=== PATIENT | female | born 1955 | race Caucasian/White ===

== ENCOUNTER 2021-05-30 17:49 | Inpatient (IN) | payer MEDICARE ==
[~2021-05-30] VITALS: Ht 162.6 cm; Wt 76.2 kg
[~2021-05-30 17:49] MED LIST: ALBU8.5H8 INH; ALPR0.5T7 PO; ASCO500T8 PO; BACL-19 PO; BUDE10.2 INH; BUTA1CAP30 PO; CARV6.2512 PO; FENT1PAT77 SC; FENT1PAT77 TD; FERR325T18 PO; FURO20TA3 PO; GUAI600T80 PO; LEVO500T47 PO; LISI5TAB7 PO; LORA2TAB99 PO; MORP30CA15 PO; MORP30SU PR; NYST1000 PO; OMEP40CA8 PO; PRED10TA PO; SIMV10TA18 PO; SPIR25TA5 PO; TIOT18CA INH; VENL150C6 PO; WARF5TAB2 PO; WARF7.5T PO
[2021-05-30] MEDS ORDERED: PLEASE ENTER HEIGHT AND WEIGHT MC SCH (18:00)
[2021-05-30] MEDS ORDERED: SODIUM CHLORIDE FLUSH 10ML SYR IVF ONE (18:00)
[2021-05-30] MEDS ORDERED: ONDANSETRON 2MG/ML, 2ML IVPush ONE (18:00)
[2021-05-30 18:15] LABS: BASOPHILS % (AUTO) 1 % (0-1); EOSINOPHILS % (AUTO) 0 % (1-7); LYMPHOCYTES % (AUTO) 5 % (22-44); MEAN CORPUSCULAR HEMOGLOBIN 26.6 pg (27.0-34.8); MEAN CORPUSCULAR HGB CONC 32.1 g/dL (32.4-35.8); MEAN PLATELET VOLUME 9.2 fL (7.4-10.4); MONOCYTES % (AUTO) 5 % (2-9); NEUTROPHILS % (AUTO) 89 % (42-75); PLATELET COUNT 264 x10^3/uL (130-400); RED BLOOD COUNT 4.04 x10^6/uL (3.82-5.3); RED CELL DISTRIBUTION WIDTH 15.9 % (9.6-15.2)
[2021-05-30] MEDS ORDERED: ONDANSETRON 2MG/ML, 2ML ONE ×2 (18:16→20:55)
[2021-05-30] MEDS ORDERED: MORPHINE SULFATE 4 MG/ML, 1ML ONE ×3 (18:16→20:55)
[2021-05-30] MEDS: MORPHINE SULFATE 4 MG/ML, 1ML IVPush PRN ×2 (18:17→19:22)
[2021-05-30 18:23] LABS: ALANINE AMINOTRANSFERASE 32 U/L (12-78); ALBUMIN 3.4 g/dL (3.4-5.0); ANION GAP 6 mmol/L (5-15); CALCIUM 8.8 mg/dL (8.5-10.1); CHLORIDE 108 mmol/L (98-107); CREATININE 0.83 mg/dL (0.55-1.02)
[2021-05-30 18:25] LABS: PARTIAL THROMBOPLASTIN TIME 44 Seconds (25-31)
[2021-05-30 18:26] LABS: ALKALINE PHOSPHATASE 69 U/L (45-117); BILIRUBIN,TOTAL 0.3 mg/dL (0.2-1.0); TOTAL PROTEIN 6.8 g/dL (6.4-8.2)
[2021-05-30 18:57] LABS: PROTHROMBIN TIME > 84.0 Seconds (9.6-11.5)
[2021-05-30 18:59] LABS: INTERNATIONAL NORMALIZED RATIO > 8.00 (0.93-1.1)
--- NOTE | 2021-05-30 19:03 | NUR ---
CRITICAL PT+INR REPORTED TO [facility]
[2021-05-30] MEDS ORDERED: PHYTONADIONE 10 MG/ML, 1ML ONE (19:09)
[2021-05-30] MEDS ORDERED: ENALAPRILAT 1.25 MG/ML, 1ML ONE ×2 (19:09→19:37)
[2021-05-30] MEDS ORDERED: PIPERACILLIN/TAZO 3.375 GM in DEXTROSE 5% 50 ML IVPB ONE (19:30)
[2021-05-30] MEDS ORDERED: ENALAPRILAT 1.25 MG/ML, 2ML IV ONE ×2 (19:30)
[2021-05-30] MEDS ORDERED: PHYTONADIONE 10 MG/ML, 1ML SQ ONE (19:30)
[2021-05-30] MEDS ORDERED: SODIUM CHLORIDE 0.9% 1,000ML IVBOLUS ONE (19:30)
[2021-05-30 19:44] VITALS: BP 181/114
[2021-05-30] MEDS ORDERED: LABETALOL 5MG/ML, 20ML IVPush PRN (20:00)
[2021-05-30 20:06] VITALS: BP 186/118
[2021-05-30] MEDS ORDERED: FAMOTIDINE 20 MG/2 ML ONE (20:10)
[2021-05-30] MEDS ORDERED: LABETALOL 5MG/ML, 20ML ONE (20:10)
[2021-05-30] MEDS: FAMOTIDINE 20 MG/2 ML IVPush SCH (20:11)
[2021-05-30] MEDS: PIPERACILLIN/TAZO 3.375 GM in DEXTROSE 5% 50 ML IV SCH (20:14)
[2021-05-30] MEDS: LACTATED RINGERS 1,000 ML IV SCH (20:21)
[2021-05-30] MEDS ORDERED: ATOR-2 PO (20:27)
[2021-05-30] MEDS ORDERED: MORPHINE SULFATE 4 MG/ML, 1ML IVPush ONE (20:30)
[2021-05-30 20:33] VITALS: BP 170/82
[2021-05-30 20:48] VITALS: BP 135/85
[2021-05-30] MEDS: ONDANSETRON 2MG/ML, 2ML IVPush PRN (20:57)
[2021-05-30] MEDS ORDERED: OMNIPAQUE 350 MG/ML, 100ML BOTTLE ONE (21:05)
--- NOTE | 2021-05-30 21:40 | NUR ---
PT RESTING IN BED, STATES SHE FEELS MUCH BETTER AT THIS TIME, VSS.
[2021-05-31] MEDS ORDERED: MORPHINE SULFATE 4 MG/ML, 1ML ONE ×3 (00:22→11:32)
[2021-05-31] MEDS: morphine SULFATE 10 MG/ML, 1ML IVPush PRN ×3 (00:24→11:33)
[2021-05-31] MEDS: PIPERACILLIN/TAZO 3.375 GM in DEXTROSE 5% 50 ML IV SCH ×4 (00:24→21:21)
[2021-05-31] MEDS: LACTATED RINGERS 1,000 ML IV SCH ×3 (00:25→21:22)
[2021-05-31 06:28] LABS: BASOPHILS % (AUTO) 0 % (0-1); EOSINOPHILS % (AUTO) 0 % (1-7); LYMPHOCYTES % (AUTO) 9 % (22-44); MEAN CORPUSCULAR HGB CONC 32.3 g/dL (32.4-35.8); MEAN PLATELET VOLUME 9.4 fL (7.4-10.4); MONOCYTES % (AUTO) 12 % (2-9); NEUTROPHILS % (AUTO) 79 % (42-75); PLATELET COUNT 244 x10^3/uL (130-400); RED BLOOD COUNT 3.57 x10^6/uL (3.82-5.3); RED CELL DISTRIBUTION WIDTH 15.9 % (9.6-15.2)
[2021-05-31 06:32] LABS: INTERNATIONAL NORMALIZED RATIO 3.79 (0.93-1.1); PROTHROMBIN TIME 38.1 Seconds (9.6-11.5)
[2021-05-31 06:35] LABS: ANION GAP 5 mmol/L (5-15); CALCIUM 7.9 mg/dL (8.5-10.1); CHLORIDE 109 mmol/L (98-107)
--- NOTE | 2021-05-31 08:56 | NUR ---
PATIENT RESTING QUIETLY. ORDERED BREAKFAST.
[2021-05-31] MEDS ORDERED: TEMPLATE NON-FORMULARY MED. (Budesonide/Formoterol Fumarate (Symbicort 160-4.5 Mcg Inhaler INH SCH (09:00)
[2021-05-31] MEDS ORDERED: TEMPLATE NON-FORMULARY MED. (Omeprazole** 40 MG) PO SCH (09:00)
[2021-05-31] MEDS ORDERED: FAMOTIDINE 20 MG/2 ML ONE (09:03)
[2021-05-31] MEDS: FAMOTIDINE 20 MG/2 ML IVPush SCH ×2 (09:08→21:21)
[2021-05-31] MEDS ORDERED: OMEPRAZOLE 20 MG CAPSULE.DR ONE (09:18)
--- NOTE | 2021-05-31 10:17 | NUR ---
PATIENT RESTING QUIETLY. PATIENT NPO
--- NOTE | 2021-05-31 11:30 | NUR ---
started 18 gauge right forearm as patients left iv starting to hurt her. let new nurse kaiden know. new iv great, runs well
[2021-05-31] MEDS ORDERED: POTASSIUM CHLORIDE 20 MEQ TAB.ER.PRT ONE (11:45)
[2021-05-31 12:31] VITALS: BP 157/85
[2021-05-31] MEDS ORDERED: BACLOFEN 10 MG TABLET PO PRN (13:00)
[2021-05-31] MEDS ORDERED: HYDROmorphone 2 MG/ML, 1ML ONE ×3 (14:52→22:22)
[2021-05-31] MEDS: HYDROmorphone 1 MG/ML, 1ML INJ IV PRN ×3 (15:05→22:30)
[2021-05-31] MEDS: ONDANSETRON 2MG/ML, 2ML IVPush PRN (17:15)
[2021-05-31] MEDS ORDERED: HOLD WARFARIN MC PRN (17:30)
[2021-05-31 19:17] VITALS: BP 149/82
[2021-05-31 22:29] VITALS: BP 161/73
[2021-05-31] MEDS: ALBUTEROL HFA 90 MCG/SPRAY INH PRN (23:26)
[2021-06-01 00:26] VITALS: BP 133/83
[2021-06-01] MEDS: PIPERACILLIN/TAZO 3.375 GM in DEXTROSE 5% 50 ML IV SCH ×4 (04:17→22:09)
[2021-06-01] MEDS ORDERED: HYDROmorphone 2 MG/ML, 1ML ONE ×2 (04:21→11:00)
[2021-06-01 04:31] VITALS: BP 153/98
[2021-06-01] MEDS: ALBUTEROL HFA 90 MCG/SPRAY INH PRN (04:31)
[2021-06-01] MEDS: ONDANSETRON 2MG/ML, 2ML IVPush PRN ×3 (04:31→20:11)
[2021-06-01] MEDS: HYDROmorphone 1 MG/ML, 1ML INJ IV PRN ×2 (04:32→11:04)
[2021-06-01] MEDS: LACTATED RINGERS 1,000 ML IV SCH ×2 (05:46→15:36)
[2021-06-01 06:48] LABS: INTERNATIONAL NORMALIZED RATIO 1.83 (0.93-1.1)
[2021-06-01 07:42] LABS: BASOPHILS % (AUTO) 1 % (0-1); EOSINOPHILS % (AUTO) 3 % (1-7); LYMPHOCYTES % (AUTO) 10 % (22-44); MEAN CORPUSCULAR HGB CONC 31.4 g/dL (32.4-35.8); MEAN PLATELET VOLUME 9.7 fL (7.4-10.4); MONOCYTES % (AUTO) 11 % (2-9); NEUTROPHILS % (AUTO) 76 % (42-75); PLATELET COUNT 182 x10^3/uL (130-400); RED BLOOD COUNT 3.38 x10^6/uL (3.82-5.3); RED CELL DISTRIBUTION WIDTH 16.4 % (9.6-15.2)
[2021-06-01 07:50] VITALS: BP 132/80
[2021-06-01] MEDS: OMEPRAZOLE 20 MG CAPSULE.DR PO SCH (09:12)
[2021-06-01] MEDS: FAMOTIDINE 20 MG/2 ML IVPush SCH (09:12)
[2021-06-01] MEDS: FLUTICASONE/VILANTEROL 200-25MCG/INH INH SCH (09:36)
[2021-06-01 13:21] VITALS: BP 144/87
[2021-06-01] MEDS: HYDROmorphone 2 MG/ML, 1ML IV PRN ×2 (15:56→20:10)
[2021-06-01] MEDS ORDERED: WARFARIN 10 MG TABLET PO-COUM ONE (18:00)
[2021-06-01] MEDS: FAMOTIDINE 20 MG TABLET PO SCH (20:13)
[2021-06-01 20:56] VITALS: BP 150/81
[2021-06-02 00:04] VITALS: BP_SYST 130; BP_SYST 155; BP_DIAS 101; BP_DIAS 87
[2021-06-02 00:05] VITALS: BP 130/87
[2021-06-02] MEDS: HYDROmorphone 2 MG/ML, 1ML IV PRN ×5 (00:08→21:39)
[2021-06-02] MEDS: LACTATED RINGERS 1,000 ML IV SCH ×2 (02:17→07:51)
[2021-06-02] MEDS: ALBUTEROL HFA 90 MCG/SPRAY INH PRN ×2 (02:35→07:57)
[2021-06-02] MEDS: PIPERACILLIN/TAZO 3.375 GM in DEXTROSE 5% 50 ML IV SCH ×4 (03:52→21:39)
[2021-06-02 05:39] LABS: BASOPHILS % (AUTO) 0 % (0-1); EOSINOPHILS % (AUTO) 2 % (1-7); LYMPHOCYTES % (AUTO) 8 % (22-44); MEAN CORPUSCULAR HEMOGLOBIN 26.4 pg (27.0-34.8); MEAN CORPUSCULAR HGB CONC 32.1 g/dL (32.4-35.8); MONOCYTES % (AUTO) 11 % (2-9); NEUTROPHILS % (AUTO) 80 % (42-75); PLATELET COUNT 209 x10^3/uL (130-400); RED BLOOD COUNT 2.99 x10^6/uL (3.82-5.3)
[2021-06-02 05:47] LABS: INTERNATIONAL NORMALIZED RATIO 1.44 (0.93-1.1); PROTHROMBIN TIME 15.1 Seconds (9.6-11.5)
[2021-06-02 05:49] LABS: CHLORIDE 104 mmol/L (98-107)
[2021-06-02 05:54] LABS: ANION GAP 6 mmol/L (5-15); CALCIUM 7.8 mg/dL (8.5-10.1); CREATININE 0.59 mg/dL (0.55-1.02)
[2021-06-02 07:19] VITALS: BP 149/85
[2021-06-02] MEDS ORDERED: POTASSIUM CHLORIDE 20 MEQ in SODIUM CHLORIDE 0.9% 250 ML IV ONE (07:30)
[2021-06-02] MEDS: POTASSIUM CHLORIDE 20 MEQ TAB.ER.PRT PO SCH ×2 (07:48→10:04)
[2021-06-02] MEDS: FAMOTIDINE 20 MG TABLET PO SCH ×2 (07:48→19:38)
[2021-06-02] MEDS: OMEPRAZOLE 20 MG CAPSULE.DR PO SCH (07:48)
[2021-06-02] MEDS: FLUTICASONE/VILANTEROL 200-25MCG/INH INH SCH (07:49)
[2021-06-02] MEDS: OXYBUTYNIN CHLORIDE 5 MG TABLET PO PRN ×2 (10:04→16:28)
[2021-06-02 13:51] VITALS: BP 151/78
[2021-06-02] MEDS ORDERED: OMNIPAQUE 350 MG/ML, 100ML BOTTLE ONE (14:02)
[2021-06-02] MEDS ORDERED: WARFARIN 5 MG TABLET PO-COUM ONE (18:00)
[2021-06-02 19:08] VITALS: BP 149/87
[2021-06-02] MEDS: ESCITALOPRAM 10MG TABLET PO SCH (19:22)
[2021-06-02] MEDS: ACETAMINOPHEN 325 MG TABLET PO PRN (19:38)
[2021-06-02 21:35] VITALS: BP 140/89
[2021-06-03 03:20] VITALS: BP 154/94
[2021-06-03] MEDS: ACETAMINOPHEN 325 MG TABLET PO PRN (03:27)
[2021-06-03] MEDS: PIPERACILLIN/TAZO 3.375 GM in DEXTROSE 5% 50 ML IV SCH ×3 (03:44→15:39)
[2021-06-03 05:00] LABS: INTERNATIONAL NORMALIZED RATIO 1.59 (0.93-1.1); PROTHROMBIN TIME 16.6 Seconds (9.6-11.5)
[2021-06-03 05:04] LABS: CHLORIDE 103 mmol/L (98-107)
[2021-06-03 05:13] LABS: % IRON SATURATION 5 % (20-55); ALANINE AMINOTRANSFERASE 30 U/L (12-78); ALBUMIN 2.8 g/dL (3.4-5.0); ALKALINE PHOSPHATASE 58 U/L (45-117); ANION GAP 7 mmol/L (5-15); BILIRUBIN,TOTAL 0.4 mg/dL (0.2-1.0); CREATININE 0.62 mg/dL (0.55-1.02); IRON LEVEL 16 mcg/dL (50-170); TOTAL IRON BINDING CAPACITY 305 mcg/dL (250-450); TOTAL PROTEIN 5.5 g/dL (6.4-8.2)
[2021-06-03 07:49] VITALS: BP 184/98
[2021-06-03 08:10] VITALS: BP 171/86
[2021-06-03] MEDS ORDERED: POTASSIUM CHLORIDE 20 MEQ TAB.ER.PRT PO ONE (08:30)
[2021-06-03] MEDS: HYDROmorphone 2 MG/ML, 1ML IV PRN ×3 (08:31→18:37)
[2021-06-03] MEDS: OXYBUTYNIN CHLORIDE 5 MG TABLET PO PRN ×2 (08:31→15:18)
[2021-06-03] MEDS: OMEPRAZOLE 20 MG CAPSULE.DR PO SCH (08:31)
[2021-06-03] MEDS: FAMOTIDINE 20 MG TABLET PO SCH ×2 (08:32→21:07)
[2021-06-03] MEDS: ALBUTEROL HFA 90 MCG/SPRAY INH PRN (08:32)
[2021-06-03] MEDS: FLUTICASONE/VILANTEROL 200-25MCG/INH INH SCH (08:32)
[2021-06-03 09:37] VITALS: BP 153/78
[2021-06-03] MEDS ORDERED: LIDOCAINE 1%, 10ML ONE (11:28)
[2021-06-03] MEDS ORDERED: MIDAZOLAM 1 MG/ML, 5ML ONE ×2 (11:29)
[2021-06-03] MEDS ORDERED: FLUMAZENIL 0.1 MG/1 ML, 5ML ONE (11:29)
[2021-06-03] MEDS ORDERED: NALOXONE 1 MG/ML, 2ML ONE (11:29)
[2021-06-03] MEDS ORDERED: FENTANYL PF 100 MCG/2ML ONE (11:29)
[2021-06-03 15:00] VITALS: BP 138/89
[2021-06-03] MEDS ORDERED: WARFARIN 7.5 MG TABLET PO-COUM ONE (18:00)
[2021-06-03] MEDS: MEROPENEM 1 GM in SODIUM CHLORIDE 0.9% 100 ML IV SCH (18:28)
[2021-06-03 20:20] VITALS: BP 159/76
[2021-06-03] MEDS: ESCITALOPRAM 10MG TABLET PO SCH (21:07)
[2021-06-03] MEDS ORDERED: HYDROmorphone 2 MG/ML, 1ML ONE (21:25)
[2021-06-03] MEDS ORDERED: HYDROmorphone 1 MG/ML, 1ML INJ IV ONE (21:30)
[2021-06-04 00:50] VITALS: BP 148/85
[2021-06-04] MEDS: HYDROmorphone 2 MG/ML, 1ML IV PRN ×6 (01:06→23:45)
[2021-06-04] MEDS: MEROPENEM 1 GM in SODIUM CHLORIDE 0.9% 100 ML IV SCH (02:21)
[2021-06-04 06:29] LABS: BASOPHILS % (AUTO) 0 % (0-1); EOSINOPHILS % (AUTO) 2 % (1-7); LYMPHOCYTES % (AUTO) 16 % (22-44); MEAN CORPUSCULAR HEMOGLOBIN 27.2 pg (27.0-34.8); MEAN CORPUSCULAR HGB CONC 32.5 g/dL (32.4-35.8); MEAN PLATELET VOLUME 8.7 fL (7.4-10.4); MONOCYTES % (AUTO) 13 % (2-9); NEUTROPHILS % (AUTO) 69 % (42-75); PLATELET COUNT 223 x10^3/uL (130-400); RED CELL DISTRIBUTION WIDTH 16.6 % (9.6-15.2)
[2021-06-04 06:31] LABS: INTERNATIONAL NORMALIZED RATIO 1.89 (0.93-1.1); PROTHROMBIN TIME 19.6 Seconds (9.6-11.5)
[2021-06-04 06:37] LABS: CHLORIDE 103 mmol/L (98-107)
[2021-06-04 06:48] LABS: ALANINE AMINOTRANSFERASE 29 U/L (12-78); ALBUMIN 2.8 g/dL (3.4-5.0); ALKALINE PHOSPHATASE 62 U/L (45-117); ANION GAP 6 mmol/L (5-15); BILIRUBIN,TOTAL 0.4 mg/dL (0.2-1.0); CALCIUM 8.3 mg/dL (8.5-10.1); CREATININE 0.59 mg/dL (0.55-1.02); TOTAL PROTEIN 5.9 g/dL (6.4-8.2)
[2021-06-04] MEDS: OMEPRAZOLE 20 MG CAPSULE.DR PO SCH (07:44)
[2021-06-04 07:45] VITALS: BP 156/96
[2021-06-04] MEDS: FAMOTIDINE 20 MG TABLET PO SCH ×2 (07:45→20:04)
[2021-06-04] MEDS: FLUTICASONE/VILANTEROL 200-25MCG/INH INH SCH (07:45)
[2021-06-04] MEDS: ACETAMINOPHEN 325 MG TABLET PO PRN (08:36)
[2021-06-04] MEDS: OXYBUTYNIN CHLORIDE 5 MG TABLET PO PRN (08:36)
[2021-06-04] MEDS ORDERED: OXYcodone/APAP 10/325MG TABLET PO PRN (09:30)
[2021-06-04] MEDS: AMPICILLIN/SULBACTAM 3 GM in SODIUM CHLORIDE 0.9% 100 ML IV SCH ×3 (09:40→20:55)
[2021-06-04] MEDS ORDERED: POTASSIUM CHLORIDE 20 MEQ TAB.ER.PRT PO ONE (11:00)
[2021-06-04 14:02] VITALS: BP 144/80
[2021-06-04] MEDS ORDERED: WARFARIN 5 MG TABLET PO-COUM ONE (17:11)
[2021-06-04] MEDS ORDERED: WARFARIN 2.5 MG TABLET PO-COUM ONE (17:11)
[2021-06-04] MEDS ORDERED: WARFARIN 7.5 MG TABLET PO-COUM ONE (18:00)
[2021-06-04] MEDS: ESCITALOPRAM 10MG TABLET PO SCH (20:04)
[2021-06-04 20:32] VITALS: BP 170/103
[2021-06-04] MEDS: ALBUTEROL HFA 90 MCG/SPRAY INH PRN (20:54)
[2021-06-04 21:08] VITALS: BP 175/70
[2021-06-05 00:22] VITALS: BP 162/78
[2021-06-05] MEDS: AMPICILLIN/SULBACTAM 3 GM in SODIUM CHLORIDE 0.9% 100 ML IV SCH ×4 (03:15→23:08)
[2021-06-05 05:50] VITALS: BP 178/94
[2021-06-05 06:13] VITALS: BP 163/78
[2021-06-05] MEDS: ALBUTEROL HFA 90 MCG/SPRAY INH PRN (06:14)
[2021-06-05 07:04] VITALS: BP 161/96
[2021-06-05 09:13] LABS: BASOPHILS % (AUTO) 1 % (0-1); EOSINOPHILS % (AUTO) 1 % (1-7); LYMPHOCYTES % (AUTO) 8 % (22-44); MEAN CORPUSCULAR HEMOGLOBIN 26.8 pg (27.0-34.8); MEAN CORPUSCULAR HGB CONC 32.6 g/dL (32.4-35.8); MEAN PLATELET VOLUME 8.7 fL (7.4-10.4); MONOCYTES % (AUTO) 11 % (2-9); NEUTROPHILS % (AUTO) 80 % (42-75); PLATELET COUNT 245 x10^3/uL (130-400); RED BLOOD COUNT 3.22 x10^6/uL (3.82-5.3); RED CELL DISTRIBUTION WIDTH 16.6 % (9.6-15.2)
[2021-06-05 09:16] LABS: INTERNATIONAL NORMALIZED RATIO 2.25 (0.93-1.1); PROTHROMBIN TIME 23.2 Seconds (9.6-11.5)
[2021-06-05 09:17] LABS: ANION GAP 7 mmol/L (5-15); CALCIUM 8.4 mg/dL (8.5-10.1); CHLORIDE 100 mmol/L (98-107); CREATININE 0.55 mg/dL (0.55-1.02)
[2021-06-05] MEDS: FAMOTIDINE 20 MG TABLET PO SCH ×2 (09:20→20:25)
[2021-06-05] MEDS: OMEPRAZOLE 20 MG CAPSULE.DR PO SCH (09:20)
[2021-06-05] MEDS: LISINOPRIL 20 MG TABLET PO SCH (09:20)
[2021-06-05] MEDS: HYDROmorphone 2 MG/ML, 1ML IVPush PRN ×4 (09:22→23:08)
[2021-06-05] MEDS: FLUTICASONE/VILANTEROL 200-25MCG/INH INH SCH (13:07)
[2021-06-05 14:40] VITALS: BP 154/83
[2021-06-05] MEDS ORDERED: WARFARIN 7.5 MG TABLET PO-COUM ONE (18:00)
[2021-06-05] MEDS ORDERED: WARFARIN 5 MG TABLET PO-COUM ONE (20:07)
[2021-06-05 20:20] VITALS: BP_SYST 154; BP_SYST 163; BP_DIAS 80; BP_DIAS 83
[2021-06-05] MEDS: ESCITALOPRAM 10MG TABLET PO SCH (20:25)
[2021-06-06 02:37] VITALS: BP 155/86
[2021-06-06 04:19] LABS: BASOPHILS % (AUTO) 1 % (0-1); EOSINOPHILS % (AUTO) 2 % (1-7); LYMPHOCYTES % (AUTO) 17 % (22-44); MEAN CORPUSCULAR HEMOGLOBIN 26.8 pg (27.0-34.8); MEAN CORPUSCULAR HGB CONC 32.9 g/dL (32.4-35.8); MEAN PLATELET VOLUME 8.6 fL (7.4-10.4); MONOCYTES % (AUTO) 15 % (2-9); NEUTROPHILS % (AUTO) 66 % (42-75); PLATELET COUNT 224 x10^3/uL (130-400); RED CELL DISTRIBUTION WIDTH 16.6 % (9.6-15.2)
[2021-06-06 04:20] LABS: ANION GAP 4 mmol/L (5-15); CALCIUM 8.5 mg/dL (8.5-10.1); CHLORIDE 101 mmol/L (98-107)
[2021-06-06 04:21] LABS: INTERNATIONAL NORMALIZED RATIO 2.53 (0.93-1.1); PROTHROMBIN TIME 25.9 Seconds (9.6-11.5)
[2021-06-06] MEDS: AMPICILLIN/SULBACTAM 3 GM in SODIUM CHLORIDE 0.9% 100 ML IV SCH ×4 (04:30→22:42)
[2021-06-06] MEDS: HYDROmorphone 2 MG/ML, 1ML IVPush PRN ×4 (04:45→21:40)
[2021-06-06 08:23] VITALS: BP 147/101
[2021-06-06] MEDS: FAMOTIDINE 20 MG TABLET PO SCH ×2 (08:24→20:04)
[2021-06-06] MEDS: LISINOPRIL 20 MG TABLET PO SCH (08:24)
[2021-06-06] MEDS: FLUTICASONE/VILANTEROL 200-25MCG/INH INH SCH (08:24)
[2021-06-06] MEDS: OMEPRAZOLE 20 MG CAPSULE.DR PO SCH (08:24)
[2021-06-06] MEDS ORDERED: POTASSIUM CHLORIDE 20 MEQ TAB.ER.PRT PO ONE (10:00)
[2021-06-06 14:04] VITALS: BP 169/93
[2021-06-06] MEDS ORDERED: WARFARIN 5 MG TABLET PO-COUM ONE (18:00)
[2021-06-06 19:40] VITALS: BP 159/101
[2021-06-06] MEDS: ESCITALOPRAM 10MG TABLET PO SCH (20:04)
[2021-06-06] MEDS: ALBUTEROL HFA 90 MCG/SPRAY INH PRN (20:37)
[2021-06-07 01:34] VITALS: BP 150/97
[2021-06-07] MEDS: AMPICILLIN/SULBACTAM 3 GM in SODIUM CHLORIDE 0.9% 100 ML IV SCH ×2 (04:37→10:29)
[2021-06-07 04:50] LABS: BASOPHILS % (AUTO) 2 % (0-1); EOSINOPHILS % (AUTO) 2 % (1-7); LYMPHOCYTES % (AUTO) 25 % (22-44); MEAN CORPUSCULAR HEMOGLOBIN 26.6 pg (27.0-34.8); MEAN CORPUSCULAR HGB CONC 32.7 g/dL (32.4-35.8); MEAN PLATELET VOLUME 9.1 fL (7.4-10.4); MONOCYTES % (AUTO) 16 % (2-9); NEUTROPHILS % (AUTO) 56 % (42-75); PLATELET COUNT 270 x10^3/uL (130-400); RED BLOOD COUNT 3.27 x10^6/uL (3.82-5.3)
[2021-06-07] MEDS: HYDROmorphone 2 MG/ML, 1ML IVPush PRN (04:52)
[2021-06-07 05:05] LABS: ANION GAP 5 mmol/L (5-15); CALCIUM 8.4 mg/dL (8.5-10.1); CHLORIDE 102 mmol/L (98-107); CREATININE 0.61 mg/dL (0.55-1.02)
[2021-06-07 05:10] LABS: INTERNATIONAL NORMALIZED RATIO 2.77 (0.93-1.1); PROTHROMBIN TIME 28.2 Seconds (9.6-11.5)
[2021-06-07 06:17] VITALS: BP 128/77
[2021-06-07] MEDS: FAMOTIDINE 20 MG TABLET PO SCH (08:44)
[2021-06-07] MEDS: FLUTICASONE/VILANTEROL 200-25MCG/INH INH SCH (08:45)
[2021-06-07] MEDS: LISINOPRIL 20 MG TABLET PO SCH (08:45)
[2021-06-07] MEDS: OMEPRAZOLE 20 MG CAPSULE.DR PO SCH (08:45)
[2021-06-07] MEDS ORDERED: ERTAPENEM 1 GM in SODIUM CHLORIDE 0.9% 50 ML IV SCH (11:30)
[2021-06-07] MEDS ORDERED: FLUT1BLS INH (14:59)
[2021-06-07] MEDS ORDERED: ERTA1VIA IV (14:59)
[2021-06-07 15:22] VITALS: BP 167/90
[2021-06-07] MEDS ORDERED: WARFARIN 5 MG TABLET PO-COUM ONE (18:00)
== END 2021-06-07 17:32 | disposition home health service (06) | DRG 871 ==
LOC: ED 18:38 → EDIP 19:37 → 4WST 05-31 12:12
PROVIDERS: ADMIT Internal Medicine; ATTEND Internal Medicine
PROC: 30233K1 Transfusion of Nonautologous Frozen Plasma into Peripheral Vein, Percutaneous Approach (ICD-10-PCS; principal; 2021-05-30)
PROC: 0W9J30Z Drainage of Pelvic Cavity with Drainage Device, Percutaneous Approach (ICD-10-PCS; 2021-06-03)
PROC: 02HV33Z Insertion of Infusion Device into Superior Vena Cava, Percutaneous Approach (ICD-10-PCS; 2021-06-05)
PROC: B5181ZA Fluoroscopy of Superior Vena Cava using Low Osmolar Contrast, Guidance (ICD-10-PCS; 2021-06-05)
PROC: B548ZZA Ultrasonography of Superior Vena Cava, Guidance (ICD-10-PCS; 2021-06-05)
DX: A41.50 Gram-negative sepsis, unspecified (principal); K57.21 Diverticulitis of large intestine with perforation and abscess with bleeding; K65.0 Generalized (acute) peritonitis; G90.50 Complex regional pain syndrome I, unspecified; I16.1 Hypertensive emergency; J96.10 Chronic respiratory failure, unspecified whether with hypoxia or hypercapnia; D64.9 Anemia, unspecified; I10 Essential (primary) hypertension; I48.91 Unspecified atrial fibrillation; J44.9 Chronic obstructive pulmonary disease, unspecified; R79.1 Abnormal coagulation profile; Z85.828 Personal history of other malignant neoplasm of skin; I25.2 Old myocardial infarction; Z79.01 Long term (current) use of anticoagulants; Z86.711 Personal history of pulmonary embolism; Z86.718 Personal history of other venous thrombosis and embolism; Z87.891 Personal history of nicotine dependence; Z90.710 Acquired absence of both cervix and uterus; Z88.2 Allergy status to sulfonamides
CPT/HCPCS: 36415; 36573; 49405; 71275; 74018; 74174; 74177; 80048; 80053; 82728; 83540; 83550; 83605; 83690; 83735; 84100; 85025; 85610; 85730; 86850; 86900; 87040; 87070; 87075; 87076; 87077; 87186; 87205; 93005; 99156; 99157; 99285; G0378; J0295; J1170; J1335; J2185; J2250; J2405; J2543; J3010; J3430; J3480; Q9967; C1729; C1751; C1769; J2270; J2310; J7030; J7050; J7120; P9017